=== PATIENT | female | born 1995 | race Caucasian/White ===

== ENCOUNTER 2019-09-19 23:52 | Emergency (ER) | payer BC, MEDICAID ==
--- NOTE | 2019-09-20 00:26 | EDM.PDOC ---
ED HPI GENERAL MEDICAL PROBLEM - General Chief Complaint: Gastrointestinal Problem Stated Complaint: STOMACH PAINS Time Seen by Provider: 09/20/19 00:19 Source of Information: Reports: Patient History Limitations: Reports: No Limitations - History of Present Illness INITIAL COMMENTS - FREE TEXT/NARRATIVE: Patient presents for evaluation of constipation x2 weeks. She states that she has not had a bowel movement of any significance for almost 14 days. Despite using MiraLAX, fiber, stool softeners she has had only small amounts of stool come out and of that she had to extract it herself. She is miserable and did not know what else to do tonight so called her father who brought her in. Onset: Gradual Duration: Day(s): (14) Location: Reports: Abdomen Quality: Reports: Ache, Pressure Severity: Severe Improves with: Reports: None Worsens with: Reports: Eating Abdominal Pain Score (Numeric/FACES): 10 - Related Data Allergies Allergy/AdvReac Type Severity Reaction Status Date / Time latex Allergy Rash Verified 09/20/19 00:20 NSAIDS (Non-Steroidal Allergy Anaphylactic Verified 09/20/19 00:08 Anti-Inflamma Shock Home Meds: Home Meds Albuterol Sulfate [Albuterol Sulfate Hfa] 2 puff INH ASDIRECTED PRN 09/20/19 [History] Divalproex Sodium [Depakote] 1 tab PO BID 09/20/19 [History] LORazepam [Lorazepam] 1 tab PO ASDIRECTED PRN 09/20/19 [History] Levothyroxine 1 tab PO DAILY 09/20/19 [History] Past Medical History Respiratory History: Reports: Asthma [employer] History: Reports: Musculoskeletal History: Reports: Fracture Psychiatric History: Reports: Depression Endocrine/Metabolic History: Reports: Hypothyroidism, Obesity/BMI 30+ - Past Surgical History HEENT Surgical History: Reports: Adenoidectomy, Tonsillectomy GI Surgical History: Reports: Appendectomy Endocrine Surgical History: Reports: Thyroidectomy Social & Family History - Family History Family Medical History: Noncontributory - Tobacco Use Smoking Status *Q: Never Smoker - Caffeine Use Caffeine Use: Reports: None - Recreational Drug Use Recreational Drug Use: No ED ROS GENERAL - Review of Systems Review Of Systems: See Below Constitutional: Reports: No Symptoms HEENT: Reports: No Symptoms Respiratory: Reports: No Symptoms Cardiovascular: Reports: No Symptoms GI/Abdominal: Reports: Abdominal Pain, Constipation. Denies: Black Stool, Bloody Stool, Vomiting : Reports: No Symptoms ED EXAM, GI/ABD - Physical Exam Exam: See Below Text/Narrative:: This is an adult female crying and whining on the bed in room 6. She is pleading for some sort of pain medication to make bowel movements more comfortable. Twice during my time in the room she spit small amounts of saliva into an emesis bag. Exam Limited By: No Limitations General Appearance: Moderate Distress Respiratory/Chest: Lungs Clear Cardiovascular: Tachycardia GI/Abdominal Exam: Soft, Tender ([facility] abdominal tenderness.), Abnormal Bowel Sounds (Diminished), Other (Called for her to remain in 1 position and he has asking for pain medication to relieve her rectal discomfort.) Rectal (Female) Exam: Deferred Course - Vital Signs Last Recorded V/S: Last Vital Signs Temp 36.7 C 09/20/19 00:12 Pulse 118 H 09/20/19 00:12 Resp 22 H 09/20/19 00:12 BP 136/92 H 09/20/19 00:12 Pulse Ox 97 09/20/19 00:12 - Orders/Labs/Meds Orders: Active Orders 24 hr Category Date Time Status Enema [RC] ASDIRECTED Care 09/20/19 00:27 Active - Re-Assessments/Exams Free Text/Narrative Re-Assessment/Exam: 09/20/19 00:32 Patient will be given a soapsuds enema. She was instructed to lie on her left side and hold the fluid in as long as possible for best effect. 09/20/19 01:41 After several administrations of soapsuds enema fluid, she was gradually getting stool out and beginning to feel better! 09/20/19 07:02 After a total of 4 fluid instillations, she felt significantly better and is no longer in distress. I sent her with a prescription for MiraLAX powder, 238 g, to divide between 2 bottles of Powerade and use similar to a colonoscopy prep. We discussed addition of food fiber rather than stool softener medication for preventive purposes going forward. She was discharged in excellent condition along with her son and her father. Departure - Departure Time of Disposition: 02:00 Disposition: Home, Self-Care 01 Clinical Impression: Constipation, Abdominal pain - Discharge Information Instructions: Constipation, Adult Referrals: PCP,None [Primary Care Provider] - Forms: ED Department Discharge Additional Instructions: You will need to use a large-volume MiraLAX cleanout at home. Divide the entire 238 g package of MiraLAX between two 1 L bottles of Powerade, Hardeep-Aid, Gatorade. Drink 1 bottle over an hour and then wait for 2 hours. Drinks a second bottle over an hour and then 2 hours after that drank an equal volume of apple juice. Buy extra toilet paper on the way home if you need it. The MiraLAX should work on the remaining stool from the top down. From that point you need to actively look at adding some kind of fiber into what you eat every day. Half a cup of All-Bran daily as part of what you eat will keep you regular but what ever you choose has to be something you would like to eat and will take regularly. Sepsis Event Note (ED) - Evaluation Sepsis Screening Result: No Definite Risk - Focused Exam Vital Signs: Vital Signs Temp Pulse Resp BP Pulse Ox 09/20/19 00:12 36.7 C 118 H 22 H 136/92 H 97 - My Orders Last 24 Hours: My Active Orders 09/20/19 00:27 Enema [RC] ASDIRECTED - Assessment/Plan Last 24 Hours: My Active Orders 09/20/19 00:27 Enema [RC] ASDIRECTED
== END 2019-09-20 02:09 | disposition home or self-care (01) ==
LOC: JP.ED 23:52
DX: K59.00 Constipation, unspecified (principal); J45.909 Unspecified asthma, uncomplicated; E03.9 Hypothyroidism, unspecified; E66.9 Obesity, unspecified; Z91.040 Latex allergy status; Z88.8 Allergy status to other drugs, medicaments and biological substances; Z68.39 Body mass index [BMI] 39.0-39.9, adult
CPT/HCPCS: 99283